=== PATIENT | male | born 1995 | race Two or more races ===

== ENCOUNTER 2020-03-09 11:18 | Emergency (ER) | payer SELFPAY ==
[~2020-03-09] VITALS: Ht 177.8 cm; Wt 52.2 kg
[2020-03-09] MEDS ORDERED: LORazepam 2MG/ML-1ML VIAL IM ONE (11:45)
[2020-03-09 11:57] LABS: Basophils # (auto) 0.1 10 ^3/uL (0-0.2); Basophils % (auto) 0.7 % (0.0-2.0); Eosinophils # (auto) 0.2 10 ^3/uL (0-0.8); Eosinophils % (auto) 1.7 % (0.0-7.0); Hematocrit 40.9 % (41.0-53.0); Hemoglobin 13.5 g/dL (13.5-17.5); Lymphocytes # (auto) 2.2 10 ^3/uL (0.4-5.4); Lymphocytes % (auto) 18.3 % (10.0-50.0); Mean Corpuscular Hemoglobin 29.2 pg (28.0-32.0); Mean Corpuscular Hgb Conc. 32.9 g/dL (32.0-36.0); Mean Corpuscular Volume 88.7 fL (80.0-100.0); Monocytes # (auto) 1.1 10 ^3/uL (0-1.3); Monocytes % (auto) 9.2 % (0.0-12.0); Neutrophils # (auto) 8.3 10 ^3/uL (1.6-8.6); Neutrophils % (auto) 70.1 % (37.0-80.0); Platelet Count (auto) 338 10^3/uL (140-450); Red Blood Cells 4.61 10^6/uL (4.5-5.90); Red Cell Distribution Width 13.5 % (11.8-14.3); White Blood Cell 11.8 10^3/uL (4.4-10.8)
[2020-03-09 12:22] LABS: Salicylate < 1.7 mg/dL (2.8-20.0)
[2020-03-09 12:24] LABS: Albumin 4.2 g/dL (3.4-5.0); BUN/Creatinine Ratio 15.5
[2020-03-09 12:26] LABS: Acetaminophen < 2.0 ug/mL (10-30)
[2020-03-09 12:27] LABS: Bilirubin, Total 1.2 mg/dL (0.2-1.0); Total Protein 7.6 g/dL (6.4-8.2)
[2020-03-09] MEDS ORDERED: POTASSIUM EFFERVESENT TAB 25 MEQ PO ONE ×2 (13:00→13:15)
[2020-03-09 15:04] LABS: Amphetamine Screen, Urine POSITIVE (NEGATIVE); Barbiturate Scree,Urine NEGATIVE (NEGATIVE); Benzodiazephine Screen, Urine NEGATIVE (NEGATIVE); Cannabinoid Screen, Urine NEGATIVE (NEGATIVE); Cocaine Screen, Urine NEGATIVE (NEGATIVE); Phencyclidine Screen, Urine NEGATIVE (NEGATIVE)
[2020-03-09 15:11] LABS: Opiate Scree,Urine NEGATIVE (NEGATIVE)
[2020-03-10 11:44] VITALS: BP 103/54
--- NOTE | 2020-03-10 15:50 | NUR ---
assessment Per [facility] housing[facility]. Per Leticia in ER patient has been discharged. Addendum: 03/10/20 at 1551 by Kaity Gramajo Amended: Links added.
== END 2020-03-10 10:24 | disposition home or self-care (01) ==
LOC: ER 11:18
DX: E87.6 Hypokalemia (principal); F25.9 Schizoaffective disorder, unspecified; F41.9 Anxiety disorder, unspecified; D72.829 Elevated white blood cell count, unspecified; F17.210 Nicotine dependence, cigarettes, uncomplicated
CPT/HCPCS: 36415; 80053; 80307; 80320; 80329; 85025; 96372; 99285; J2060